=== PATIENT | female | born 2000 | race Asian ===

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

== ENCOUNTER 2022-09-12 11:42 | Emergency (ER) | payer BC ==
[~2022-09-12] VITALS: Ht 160 cm; Wt 77.1 kg
[2022-09-12 11:50] VITALS: BP 136/80; TEMP 98.1
== END 2022-09-12 12:38 | disposition home or self-care (01) ==
LOC: ED 11:42
DX: S00.81XA Abrasion of other part of head, initial encounter (principal); Y04.0XXA Assault by unarmed brawl or fight, initial encounter; Y92.89 Other specified places as the place of occurrence of the external cause
CPT/HCPCS: 99282